=== PATIENT | male | born 1950 | race Caucasian/White ===

== ENCOUNTER 2024-04-09 15:21 | Observation (INO) ==
[2024-04-09] MEDS ORDERED: Heparin IV Adult Wt-Based Standard w/ INITIAL Bolus Protocol IV SCH (16:53)
[2024-04-09 16:59] LABS: Basophils # (auto) 0.05 K/uL (0.00-0.20); Basophils % (auto) 0.5 %; Eosinophils # (auto) 0.22 K/uL (0.00-0.50); Eosinophils % (auto) 2.2 %; Hematocrit (blood only) 46.3 % (42.0-52.0); Hemoglobin 15.7 g/dl (14.0-18.0); Immature Granulocytes # (auto) 0.04 K/uL (0.01-0.20); Immature Granulocytes % (auto) 0.4 %; Lymphocytes # (auto) 1.81 K/uL (1.20-3.40); Lymphocytes % (auto) 18.3 %; Mean Corpuscular Hemoglobin 30.4 pg (25.0-34.0); Mean Corpuscular Hgb Conc 33.9 g/dL (32.0-36.0); Mean Corpuscular Volume 89.7 fL (80.0-100.0); Mean Platelet Volume 10.2 fL (9.4-12.4); Monocytes # (auto) 0.77 K/uL (0.11-0.59); Monocytes % (auto) 7.8 %; Neutrophils # (auto) 6.98 K/uL (1.40-6.50); Neutrophils % (auto) 70.8 %; Platelet Count 250 K/uL (130-400); RDW Coefficient of Variation 13.8 % (11.5-14.5); RDW Standard Deviation 45.8 fL (36.4-46.3); Red Blood Count 5.16 M/uL (4.70-6.10); White Blood Count 9.87 K/ul (4.8-10.8)
[2024-04-09 17:17] LABS: BUN Creatinine Ratio 15.7 (10-20); Calcium 9.4 mg/dl (8.6-10.3); Creatinine Clr Calc Pharmacy 74.1 ml/min; Est GFR (African American) 101.2 ml/min; Est GFR (Non-African American) 87.3 ml/min; Potassium 3.5 mmol/L (3.5-5.1)
[2024-04-09 17:28] LABS: Partial Thromboplastin Ratio 1.1; Partial Thromboplastin Time 29 Seconds (21-31); Prothrombin Time 10.9 Seconds (9.0-12.0)
--- NOTE | 2024-04-09 17:45 | History & Physical Report ---
Date of Service April 09, 2024 Assessment & Plan (1) Acute DVT (deep venous thrombosis): Plan Acute DVT LLE: Patient was evaluated for LLE swelling, got lower extremity venous Doppler done as an outpatient. See above HPI. ED physician communicated with vascular sx, patient started on heparin drip. Continue heparin drip, will get troponin, echo once CTA chest shows PE as well, CTA chest. Patient advised to follow-up with PCP office for age-appropriate cancer screening. Patient advised to follow-up with hematology upon discharge. Hypertension: Continue lisinopril. DVT prophylaxis: Patient will be on heparin drip Full code History of Present Illness Chief Complaint: LLE DVT Primary Care Provider: NO PCP 74-year-old male with PMH of HTN, Prediabetes (A1c of 6.0 on 04/08/2024), prostate cancer status post radical prostatectomy about 20 years ago (02/20/24 PSA <0.02), cataract both eyes, current use of tobacco [ 6-7 cigarettes a day] was referred to the ED by his PCP office after noting acute DVT in his left lower extremity. His outpatient lower extremity venous ultrasound Doppler as below: Left external iliac vein has continuous flow, and echogenic. Left common femoral vein has continuous flow, is partly compressible and echogenic. Left femoral vein has continuous flow, is non-compressible and echogenic. Left popliteal vein has no flow, is non-compressible and echogenic. Left posterior tibial vein demonstrates evidence of thrombosis. Left peroneal vein demonstrates evidence of thrombosis. The contralateral common femoral vein is patent and free of internal echoes. Patient reports progressive left lower extremity swelling since last couple of weeks, associated with pain, patient thought it could be gout and took naproxen without much relief, even propped his lower extremity up with no reduction in swelling. Yesterday he went to PCP office where Doppler lower extremity was done, came back positive for DVT today and he was referred to the ED. Patient denies any long travel, he reports that he is pretty much mobile and active and does not have any sedentary lifestyle in the last couple of months. Patient reports his last colonoscopy could be more than 13 years ago but reports that his Cologuard done approximately 6 months ago came back negative. Could not locate Cologuard test in the [facility] EMR. Patient denies fever/sore throat/chest pain/cough/palpitation/heada kaur/dizziness/nausea/vomiting/acute changes in his bowel or bladder or appetite habits/belly pain/shortness of breath. Patient reports smoking 6 to 7 cigarettes a day, drinks beer on weekends, uses m arijuana daily. Medications reviewed with the patient at bedside. Plan of care discussed with the patient in detail, he voiced understanding. Full code Allergies Allergy/AdvReac Type Severity Reaction Status Date / Time venom-wasp protein Allergy Unknown Verified 04/09/24 17:28 Home Medications Medication Instructions Recorded Confirmed Type lisinopril 40 mg tablet 40 mg PO UD 04/09/24 04/09/24 History Past Med/Surg History Problem List (Updated 04/09/24 @ 17:51 by Alma Sanon MD) Acute DVT (deep venous thrombosis) Social History Smoking Status: Current every day smoker Preferred Language: Georgian Feels Safe at Home: Yes Review of Systems Review of Systems: Negative otherwise mentioned in HPI. Physical Exam Physical Exam: GENERAL: Alert and oriented x3. NAD, on RA. HEENT: No pallor, no icterus. Pupils equal, round and reactive to light. Oral mucosa moist. NECK: No JVD, no neck masses. HEART: S1 and S2 heard. Regular rate and rhythm. No murmur, no gallop. RESPIRATORY SYSTEM: Normal AP diameter. No accessory muscle use. No wheezing, no crackles. ABDOMEN: Soft, bowel sounds present, nontender, no distention. CENTRAL NERVOUS SYSTEM: No facial droop. Speech is clear. Obeys simple commands. Moves extremities. EXTREMITIES: No edema x rle, no erythema seen. LLE: 2+ edema, tender, no erythema. Results & Data Results & Data Vital Signs (Past 12 Hours) Vital Signs Temp Pulse Resp BP Pulse Ox O2 Del Method 04/09/24 16:53 76 04/09/24 15:57 36.4 C L 78 19 160/92 H 99 Room Air
[2024-04-09] MEDS ORDERED: MAGNESIUM HYDROXIDE SUSP 30 ML UDC PO PRN (17:49)
[2024-04-09] MEDS ORDERED: POLYETHYLENE (MIRALAX) 17 GM PACK PO PRN (17:49)
[2024-04-09] MEDS ORDERED: ALUMINUM/MAGNESIUM SUSP 30 ML UDC PO PRN (17:49)
[2024-04-09] MEDS ORDERED: ACETAMINOPHEN 325 MG TAB PO PRN (17:49)
[2024-04-09] MEDS: HEPARIN SODIUM/DEXTROSE 25,000 UNITS/500 ML BAG IV SCH (17:53)
[2024-04-09] MEDS: HEPARIN SOD (PORCINE) 1000 UNIT/ML IV ONE ×2 (17:54→17:55)
[2024-04-09] MEDS: Heparin IV Adult Wt-Based Standard w/ INITIAL Bolus Protocol IV STA (17:55)
[2024-04-09 18:17] LABS: Troponin I High Sensitivity 5.5 pg/ml (0-20)
[2024-04-09] MEDS: OPTIRAY 320 125ml IV ONE (18:45)
--- NOTE | 2024-04-09 19:20 | CT Scan Report ---
Exam(s): CTA CHEST IV Amt: 114 cc opti 320 EXAM: CT Angiography Chest With Intravenous Contrast CLINICAL HISTORY: Reason for exam: PE. TECHNIQUE: Axial computed tomographic angiography images of the chest with intravenous contrast. CTDI is 17.25 mGy and DLP is 600.23 mGy-cm. Automated exposure control was utilized for the study. A dose lowering technique was utilized adhering to the principles of ALARA. MIP reconstructed images were created and reviewed. COMPARISON: No relevant prior studies available. FINDINGS: Pulmonary arteries: Small amount of subacute to chronic appearing PE within the right lower lobar segmental pulmonary arteries. 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 No dissection. Lungs: No pulmonary infarct. No consolidation. Pleural based granuloma within the periphery of the right upper lobe. Minimal atelectasis within the right middle and right lower lobes. Pleural space: Unremarkable. Heart: RV to LV ratio less than 1. No evidence of right heart strain. Bones/joints: No acute fracture. Soft tissues: Unremarkable. Lymph nodes: Unremarkable. IMPRESSION: 1. Small amount of subacute to chronic appearing PE within the right lower lobar segmental pulmonary arteries. 2. RV to LV ratio less than 1. No evidence of right heart strain. 3. 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 No dissection. Communications: Verify Receipt Electronically signed by: Amado Hoyt MD 04/09/24 19:19 PM
--- NOTE | 2024-04-09 22:41 | Emergency Department Note ---
History of Present Illness General Chief Complaint: Abnormal Labs/Diagnostic Testing Stated Complaint: LAB Time Seen by Provider: 04/09/24 16:01 History of Present Illness Provider Complaint: + abnormal lab Returns today for: + called because of abnormal lab/test Description of abnormal result: Ultrasound showing DVT Associated symptoms: no fever, no chills, no chest pain, no shortness of breath, no rash or no abdominal pain Home Medications Medication Instructions Recorded Confirmed Type lisinopril 40 mg tablet 40 mg PO UD 04/09/24 04/09/24 History Allergies Allergy/AdvReac Type Severity Reaction Status Date / Time venom-wasp protein Allergy Unknown Verified 04/09/24 17:28 Past Med/Surg History Problem List (Updated 04/09/24 @ 22:41 by Clayton Hill MD) Acute DVT (deep venous thrombosis) (Acute) Medical History No pertinent family history HTN (hypertension) Surgical History No pertinent past surgical history Social History Smoking Status: Current every day smoker Tobacco Type: Cigarettes Cigarettes Per Day: 6; Do You Dip or Chew Tobacco: No; Hx Alcohol Use: Yes Alcohol type: beer Hx Substance Use: Yes Last Used Substance: Days (ago) Preferred Language: [employer] [employer] Required: No Beliefs That Will Affect Care: None Current Living Situation: Significant Other Other Information That Helps Us Care for You: No Feels Safe at Home: Yes Safety Concerns: Feels Safe At This Time Assistive Devices: Denture - Upper Physical Exam 2 Vital Signs: Vital Signs - 24 hr 04/09/24 15:57 04/09/24 16:19 04/09/24 16:53 Temperature 36.4 C L Temperature Source Temporal Artery Sc an Pulse Rate 78 74 76 Pulse Rate [Apical ] Pulse Rhythm Regular Pulse Rhythm [Apic al] Pulse Strength Normal Pulse Strength [Ap ical] Respiratory Rate 19 17 Respiratory Effort / Characteristics Non-Labored Respiratory Depth Normal Respiratory Patter n Regular Blood Pressure 160/92 H Blood Pressure [Le ft Arm] Blood Pressure Jordyn n 114 Blood Pressure Jordyn n [Left Arm] Blood Pressure Pos ition Sitting Blood Pressure Pos ition [Left Arm] Pulse Oximetry 99 98 Oxygen Delivery Me thod Room Air Room Air Sepsis Recent Feve r Within 48 Hours No Sepsis New/Unexpla ined Change in Men hermila Status No Sepsis Action Take n by Nursing No Action Required 04/09/24 17:49 Temperature Temperature Source Pulse Rate Pulse Rate [Apical ] 81 Pulse Rhythm Pulse Rhythm [Apic al] Regular Pulse Strength Pulse Strength [Ap ical] Normal Respiratory Rate 14 Respiratory Effort / Characteristics Non-Labored Respiratory Depth Normal Respiratory Patter n Regular Blood Pressure Blood Pressure [Le ft Arm] 155/88 H Blood Pressure Jordyn n Blood Pressure Jordyn n [Left Arm] 110 Blood Pressure Pos ition Blood Pressure Pos ition [Left Arm] Sitting Pulse Oximetry 98 Oxygen Delivery Me thod Room Air Sepsis Recent Feve r Within 48 Hours Sepsis New/Unexpla ined Change in Men hermila Status Sepsis Action Take n by Nursing Physical Exam: Physical Exam CV: Normal rate, regular rhythm, normal heart sounds and intact distal pulses. Palpable radial pulses bue. PULM/CHEST: Effort normal and breath sounds normal. No respiratory distress. No stridor. He has no wheezes. He has no rales. - Chest Wall: He exhibits no tenderness. MUSC/SKEL: Swelling of the left lower extremity greater than right lower extremity. Compartments soft bilaterally. Palpable DP and PT pulses bilaterally. NEURO: He is alert and oriented to person, place, and time. He has normal strength. No cranial nerve deficit or sensory deficit. Coordination and gait normal. GCS eye subscore is 4. GCS verbal subscore is 5. GCS motor subscore is 6. Cerebellar tests wnl. Course Course 1601: The patient was evaluated in room C6. A complete history and physical exam was performed Cardiac monitoring: An order was placed for continuous cardiac monitoring. The monitor shows a rate of 70 with sinus rhythm interpreted by me 1639: Niurka case assembler was able to obtain external medical records of the the ultrasound report from the [employer] EMR. The patient's ultrasound done today showed an extensive DVT with partly compressible left common femoral vein noncompressible left femoral vein left popliteal vein is noncompressible has no flow left posterior tibial vein demonstrates evidence of thrombosis left peroneal vein demonstrates evidence of thrombosis. Given the extensive quality of this DVT is thought that the patient should be admitted for anticoagulation as opposed to be started on DOAC. Discussed the case with [facility] hospitalist team Dr. Sanon who asked that we speak with Dr. Urena from vascular surgery to see if he prefers IV blood thinners or DOAC treatment. 8: Spoke with Dr. Urena from vascular surgery. He agrees that the patient should be treated with IV heparin. Dr. Sanon's team was notified and the patient will be started on heparin. 8: Vital signs stable. Patient reporting chest pain or difficulty breathing. Inpatient team ordered a CTA of his chest which showed small amount of subacute to chronic appearing PE in the right lower lobe segmental pulmonary arteries with no evidence of heart strain. [facility] hospitalist Dr. Rangel who took over for Dr. Sanon was made aware of these results. Patient is already on heparin. Administered Medications Heparin Sodium/Dextrose (Heparin Sodium/Dextrose) 25,000 units in 500 mls @ 24 mls/hr IV .[id number] [facility]; Protocol Stop: 05/09/24 17:14 Last Admin: 04/09/24 17:53 Dose: 1,200 units/hr, 24 mls/hr Documented By: JASWINDER Co-signed By: [facility] Discontinued Medications Heparin Sodium (Porcine) (Heparin Sod (Porcine) 1000 Unit/Ml) 1 units IV NOW ONE Stop: 04/09/24 17:06 Last Admin: 04/09/24 17:55 Dose: Not Given Documented By: JASWINDER Heparin Sodium (Porcine) (Heparin Sod (Porcine) 1000 Unit/Ml) 5,000 units IV NOW ONE Stop: 04/09/24 17:31 Last Admin: 04/09/24 17:54 Dose: 5,000 units Documented By: JASWINDER Co-signed By: [facility] Heparin Sodium/Dextrose (Heparin Iv Adult Wt-Based Standard W/ Initial Bolus Protocol) 1 each IV NOW STA; Protocol Stop: 04/09/24 16:51 Last Admin: 04/09/24 17:55 Dose: Not Given Documented By: JASWINDER Ioversol (Optiray 320 125ml) 114 ml IV ONCE ONE Stop: 04/09/24 18:45 Last Admin: 04/09/24 18:45 Dose: 114 ml Documented By: RAFAL Medical Decision Making Medical Records Attestation: I reviewed the patient's medical records. external medical records of the the ultrasound report from the [employer] EMR. The patient's ultrasound done today showed an extensive DVT with partly compressible left common femoral vein noncompressible left femoral vein left popliteal vein is noncompressible has no flow left posterior tibial vein demonstrates evidence of thrombosis left peroneal vein demonstrates evidence of thrombosis. Laboratory Data Attestation: I reviewed the patient's lab results. 04/09/24 16:34 04/09/24 16:34 Lab Results 04/09/24 Range/Units 16:34 WBC 9.87 (4.8-10.8) K/ul RBC 5.16 (4.70-6.10) M/uL Hgb 15.7 (14.0-18.0) g/dl Hct 46.3 (42.0-52.0) % MCV 89.7 (80.0-100.0) fL MCH 30.4 (25.0-34.0) pg MCHC 33.9 (32.0-36.0) g/dL RDW Std Deviation 45.8 (36.4-46.3) fL RDW Coeff of Cely 13.8 (11.5-14.5) % Plt Count 250 (130-400) K/uL MPV 10.2 (9.4-12.4) fL Immature Gran % (Auto) 0.4 % Neut % (Auto) 70.8 % Lymph % (Auto) 18.3 % Fannin % (Auto) 7.8 % Eos % (Auto) 2.2 % Baso % (Auto) 0.5 % Neut # (Auto) 6.98 H (1.40-6.50) K/uL Lymph # (Auto) 1.81 (1.20-3.40) K/uL Fannin # (Auto) 0.77 H (0.11-0.59) K/uL Eos # (Auto) 0.22 (0.00-0.50) K/uL Baso # (Auto) 0.05 (0.00-0.20) K/uL Immature Gran # (Auto) 0.04 (0.01-0.20) K/uL PT 10.9 (9.0-12.0) Seconds INR 1.0 (0.9-1.1) APTT 29 (21-31) Seconds PTT Ratio 1.1 Sodium 138 (136-145) mmol/L Potassium 3.5 (3.5-5.1) mmol/L Chloride 103 (98-107) mmol/L Carbon Dioxide 27 (21-32) mmol/L Anion Gap 8 (3-11) BUN 13 (6-23) mg/dl Creatinine 0.83 (0.6-1.4) mg/dl Est Cr Clr Drug Dosing 74.1 ml/min Est GFR ( Amer) 101.2 ml/min Est GFR (Non-Af Amer) 87.3 ml/min BUN/Creatinine Ratio 15.7 (10-20) Glucose 100 H (70-99(Fasting)) mg/dl Calcium 9.4 (8.6-10.3) mg/dl Troponin I High Sens 5.5 (0-20) pg/ml [facility] Narrative 1601: The patient was evaluated in room C6. A complete history and physical exam was performed Cardiac monitoring: An order was placed for continuous cardiac monitoring. The monitor shows a rate of 70 with sinus rhythm interpreted by me 1639: Niurka case assembler was able to obtain external medical records of the the ultrasound report from the [employer] EMR. The patient's ultrasound done today showed an extensive DVT with partly compressible left common femoral vein noncompressible left femoral vein left popliteal vein is noncompressible has no flow left posterior tibial vein demonstrates evidence of thrombosis left peroneal vein demonstrates evidence of thrombosis. Given the extensive quality of this DVT is thought that the patient should be admitted for anticoagulation as opposed to be started on DOAC. Discussed the case with [facility] hospitalist team Dr. Sanon who asked that we speak with Dr. Urena from vascular surgery to see if he prefers IV blood thinners or DOAC treatment. 1648: Spoke with Dr. Urena from vascular surgery. He agrees that the patient should be treated with IV heparin. Dr. Sanon's team was notified and the patient will be started on heparin. 1928: Vital signs stable. Patient reporting chest pain or difficulty breathing. Inpatient team ordered a CTA of his chest which showed small amount of subacute to chronic appearing PE in the right lower lobe segmental pulmonary arteries with no evidence of heart strain. [facility] hospitalist Dr. Rangel who took over for Dr. Sanon was made aware of these results. Patient is already on heparin. Impression & Plan Acute DVT (deep venous thrombosis) Critical Care Time Critical Care Time: Yes Total Critical Care Time: 37 I have personally spent greater than 37 minutes of critical care time in the direct management of this patient. This includes bedside care, interpretation of diagnostic studies, and testing, discussion with consultants, patient, and family members, and other required patient management activities. This 37 minutes is in excess of all separately billable procedures. Discharge Plan Visit Data Chief Complaint: Abnormal Labs/Diagnostic Testing Stated Complaint: LAB ED Provider: Clayton Hill Discharge Problem: Acute DVT (deep venous thrombosis) Patient Disposition: Admitted As Inpatient Discharge Instructions Interventions: ED Discharge Assessment Last Done: 04/09/24 20:45 Discharge Problem: Acute DVT (deep venous thrombosis) Qualifiers: DVT location: lower extremity Affected thrombotic vein of extremity: u nspecified vein of extremity Laterality: unspecified laterality Qualified Code(s): I82.409 - Acute embolism and thrombosis of unspecified deep veins of unspecified lower extremity
[2024-04-10 00:32] LABS: ANTI-Xa, UFH(UnfractionatedHep 0.64 IU/ml (0.3-0.7)
[2024-04-10 06:01] LABS: ANTI-Xa, UFH(UnfractionatedHep 0.58 IU/ml (0.3-0.7)
[2024-04-10] MEDS: lisinopril 40 MG TAB PO SCH (08:01)
--- OUTSIDE RECORDS SUMMARY | 2024-04-10 09:53 | External Medical Summary | Summary of Care ---
Author Name Unknown Organization [facility] Address [address] [place] [address] Phone [phone] Care Team Providers Care Telesales Consultant Name Role Phone Unavailable Primary Care Provider Unavailabl e Reason for Visit * Reason Onset Date Comments Acute Patient c/o left leg and foot swelling that has been going on for appx 2 weeks. Swelling is hindering ability to walk. Medication Administration 04/08/2024 Flu an d/or Pneumo Inj Encounter Details Date Type Department Care Team (Late st Contact Info) Description 04/08/2024 4:00 PM EDT Office Visit General Internal Medicine [facility] [place] [address] [facility] [place] [address] Marielos Sweeney PA-C [address] [facility] [place] [address] Edema of left lower leg*; Pain of left calf; History of gout; Need for prophylactic vaccination and inoculation against influenza Allergies Active Allergy Reactions Criticality Noted Date Comments Wasp Venom Anaphylaxis High 02/20/2024 documented as of this encounter (statuses as of 04/08/2024) Medications Medication Sig Dispensed Refills Start Date End Date Status Lisinopril 40 MG Oral Tablet Take 1 Tablet by mouth in the morning. 90 Tablet 3 02/20/2024 Active documented as of this encounter (statuses as of 04/08/2024) Active Problems Problem Noted Date Diagnosed Date Combined forms of age-related cataract of both e yes 03/14/2024 documented as of this encounter (statuses as of 04/08/2024) Immunizations Name Administration Dates Next Due Pneumococcal Conjugate Vaccine, 20-valent (Prevn ar20) 09/22/2023 Seasonal Influenza, High Dos e, Trivalent, PF, IM (Fluzone HD) 04/08/2024 documented as of this encounter Social History Tobacco Use Types Packs/Day Years Used Date Smoking Tobacco: Former Cigarettes Smokeless Tobacco: Never Alcohol Use Standard Drinks/Week Comments Yes 6 (1 standard drink = 0.6 oz pur e alcohol) PHQ-2 Answer Date Recorded PHQ Adult Total Score 0 02/20/2024 Utilities Answer Date Recorded Do you have trouble paying y our heating, water, or electric bill? (Adult - for ages 18 years and over) Not on file 01/09/2024 Is your family able to pay t he heat, water, or electric bill? (Household - for ages 0-17 years) Not on file 01/09/2024 Does your family have access to good internet? (Household - for ages 0-17 years) Not on file 01/09/2024 Social Connections Answer Date Recorded How often do you feel lonely or isolated from those around you? (Adult - for ages 18 years and over) Not on file 01/09/2024 Sex and Gender Information Value Date Recorded Sex Assigned at Not on file Gender Identity Not on file Sexual Orientation Not on file Job Start Date Occupation Industry Not on file Not on file Not on file documented as of this encounter Last Filed Vital Signs Vital Sign Reading Time Taken Comments Blood Pressure 138/76 04/08/2024 4:25 PM EDT Pulse 82 04/08/2024 4:02 PM EDT Temperature 36.4 C (97.6 F) 04/08/2024 4:02 PM ED T Respiratory Rate - - Oxygen Saturation 99% 04/08/2024 4:02 PM EDT Inhaled Oxygen Concentration - - Weight 70.3 kg (155 lb) 04/08/2024 4:02 PM EDT Height - - Body Mass Index 23.74 02/20/2024 8:11 AM EDT documented in this encounter Patient Instructions * Patient Instructions* Gabriella Espinal, MED ASSIST - 04/08/2024 4:05 PM EDT ~~PATIENT INSTRUCTIONS FOR FLU SHOT~~ Possible side effects of influenza vaccine, (flu shot), are usually mild and include: 1. Soreness or redness at injection site 2. Low grade fever 3. Body aches You may use Tylenol/Acetaminophen as needed for these symptoms. LET YOUR DOCTOR KNOW IMMEDIATELY IF YOU HAVE DIFFICULTY BREATHING OR SWALLOWING, EXPERIENCE ITCHINGOF FEET OR HANDS, HAVE SWELLING OF EYES, FACE OR INSIDE OF NOSE. ~~PATIENT INSTRUCTIONS FOR FLU SHOT~~ Possible side effects of influenza vaccine, (flu shot), are usually mild and include: 1. Soreness or redness at injection site 2. Low grade fever 3. Body aches You may use Tylenol/Acetaminophen as needed for these symptoms. LET YOUR DOCTOR KNOW IMMEDIATELY IF YOU HAVE DIFFICULTY BREATHING OR SWALLOWING, EXPERIENCE ITCHINGOF FEET OR HANDS, HAVE SWELLING OF EYES, FACE OR INSIDE OF NOSE. documented in this encounter Progress Notes * Marielos Sweeney PA-C - 04/08/2024 4:08 PM EDT Images from the original note were not included. History of Present Illness He Powers is a 74 year old male that presents for Acute (Patient c/o left leg and foot swelling that has been going on for appx 2 weeks. Swelling is hindering ability to walk.) and Medication Administration (Flu and/or Pneumo Inj) Pt here today for an acute visit with a c/o edema of L lower leg and ankle for the last 2 weeks. Painful and hard to walk. Has been using Naproxen and icing the area with mild improvement. Denies chest pain or SOB. Denies recent travel or surgery. Reports he has a history of gout in the past. Review of Systems: See HPI for pertinent positives. All other review of systems is negative. Physical Exam Vitals: 04/08/24 1602 04/08/24 1625 Temp: 36.4 C (97.6 F) Pulse: 82 SpO2: 99% BP: 152/76 138/76 Physical Exam Constitutional: General: He is not in acute distress. Appearance: He is not diaphoretic. Cardiovascular: Rate and Rhythm: Normal rate and regular rhythm. Pulmonary: Effort: Pulmonary effort is normal. Breath sounds: Normal breath sounds. Musculoskeletal: Right lower leg: No edema. Left lower leg: Tenderness (with palpation of calf) present. 3+ Pitting Edema present. Skin: General: Skin is warm and dry. Neurological: General: No focal deficit present. Mental Status: He is alert. Mental status is at baseline. I have reviewed the following results: Assessment and Plan Edema of left lower leg Labs today to eval symptoms. R/o cardiac issues or gout. Stat Doppler to r/o DVT. Will call with results. - BASIC METABOLIC PANEL; Future - BNP, NT-PRO; Future - URIC ACID; Future - CBC WITH WBC DIFFERENTIAL AND ANEMIA REFLEX WORKUP; Future - VASC DUPLEX VENOUS LE UNILAT Pain of left calf Stat Doppler. - VASC DUPLEX VENOUS LE UNILAT History of gout Update uric acid. Symptoms today not typical of gout. - URIC ACID; Future Need for prophylactic vaccination and inoculation against influenza Flu vac given today. - INFLUENZA VAC., TRIVALENT, HD, PF, 65 AND ABOVE, 0.5 ML IM (FLUZONE HD) Wrap-Up Follow Up: Return if symptoms worsen or fail to improve, for Labs Today. | For: Labs Today Time: I spent a total of 30-39 minutes (exact time 32 mins) on the date of service in preparation, delivery, and documentation of the care provided to He Powers excluding any time spent in the performanceof separately billed services. * Gabriella Espinal MED ASSIST - 04/08/2024 4:04 PM EDT PRE - ADMINISTRATION DOCUMENTATION Are you experiencing any cold symptoms or fever? No Have you had Guillain-Freeport Syndrome (an illness that causes paralysis) within the last 6 weeks? No Have you had the flu shot in the past? YES Have you ever had a reaction to the flu shot? No LEONARDO Machado, 04/08/2024 4:04 PM Immunization Administration Documentation Time Out Procedure Performed: Yes Patient Identified (Ask Name/Date of ): Yes Does the patient have a fever greater than 101 degrees today? No Patient allergic to latex? No VFC Stock: No Immunization(s) verified: Yes, Immunization Name: Flu, VIS Sheet(s) given: Yes Verified Side and Site: Yes Verified Shot(s) with Parent(s)/Patient: Yes documented in this encounter Nursing Notes * Gabriella Espinal MED ASSIST - 04/08/2024 4:04 PM EDT Chief Complaint Patient presents with Acute Patient c/o left leg and foot swelling that has been going on for appx 2 weeks. Swelling is hindering ability to walk. documented in this encounter Plan of Treatment Upcoming Encounters Date Type Department Care Team (Late st Contact Info) Description 08/08/2024 10:00 AM EST Office Visit Ophthalmology, [facility] [address] [facility] [place] [address] Jason Giron DO [facility] [place] [address] 08/22/2024 9:20 AM EST Office Visit General Internal Medicine [facility] [address] [facility] [place] [address] Marielos Sweeney PA-C [address] [facility] [place] [address] Pending Results Name Type Priority Associated Diagnoses Date /Time BASIC METABOLIC PANEL Lab Routine Edema of left lower leg 04/08/2024 4:36 PM EDT BNP, NT-PRO Lab Routine Edema of left lower leg 04/08/2024 4:36 PM EDT URIC ACID Lab Routine Edema of left lower leg History of gout 04/08/2024 4:36 PM EDT CBC WITH WBC DIFFERENTIAL AND ANEMIA REFLEX WORKUP Lab Routine Edema of left lower leg 04/08/2024 4:36 PM EDT Scheduled Orders Name Type Priority Associated Diagnoses Orde r Schedule BASIC METABOLIC PANEL Lab Routine Edema of left lower leg Expected: 04/08/2024 (Approximate), Expires: 04/08/2025 BNP, NT-PRO Lab Routine Edema of left lower leg Expected: 04/08/2024 (Approximate), Expires: 04/08/2025 URIC ACID Lab Routine Edema of left lower leg History of gout Expected: 04/08/2024 (Approximate), Expires: 04/08/2025 CBC WITH WBC DIFFERENTIAL AND ANEMIA REFLEX WORKUP Lab Routine Edema of left lower leg Expected: 04/08/2024 (Approximate), Expires: 04/08/2025 VASC DUPLEX VENOUS LE UNILAT Medical Imaging STAT Edema of left lower leg Pain of left calf Ordered: 04/08/2024 Scheduled Procedures Name Priority Associated Diagnoses Date/Ti me EXTRACAPSULAR CATARACT REMOV AL WITH INTRAOCULAR LENS Combined forms of age-related cataract of both eyes Health Maintenance Due Date Last Done Comments DTap/Tdap Vaccines (1 - Tdap) 1970 Cologuard 1996 Colonoscopy 1996 Colorectal Cancer Screening 1996 Fecal Occult Blood Test 1996 Sigmoidoscopy 1996 Zoster Vaccines (1 of 2) 2001 COVID-19 Vaccine (2023-2 5 season) 2024 Depression Screening 02/19/2025 02/20/2024 Lipid Panel 02/19/2029 02/20/2024 Pneumococcal Vaccine: 65+ Years Completed AAA Screening Completed 03/14/2024 Influenza Vaccine (FLU shot) Completed 04/08/2024 HPV (Gardasil) Vaccine Aged Out No lo nger eligible based on patient's age to complete this topic Hepatitis B Vaccine Aged Out No longe r eligible based on patient's age to complete this topic MENINGOCOCCAL (MENACTRA/MENVEO) Aged Out No longer eligible based on patient's age to complete this topic documented as of this encounter Medical Devices Not on filedocumented as of this encounter Visit Diagnoses Diagnosis Edema of left lower leg- Primary Pain of left calf Pain in limb History of gout Personal history of other endocrine, metabolic, and immunity disorders Need for prophylactic vaccination and inoculation against influenza documented in this encounter"
--- OUTSIDE RECORDS SUMMARY | 2024-04-10 09:54 | External Medical Summary ---
Author Name Unknown Address Unknown Organization [id number]:[facility] [place] [address] [facility] [address] [place] [address] Laboratory Report Ordering Provider Test Date Status SANDIP PATEL 04/08/2024 16:36:54 Final Observation Date Value Abnormality Reference (Units ) Status BUN 04/08/2024 16:36:54 13 6-20 (mg/dL) Final Creatinine 04/08/2024 16:36:54 0.8 0.6-1.2 (mg/dL) Final Glomerular filtration rate/1.73 sq M.predicted [Volume Rate/Area] in Serum, Plasma or Blood by Creatinine-based formula (CKD-EPI) 04/08/2024 16:36:54 >90 >=60 (mL/min) Final eGFR is calculated based on the CKD-EPI 2020 equation. Sodium 04/08/2024 16:36:54 139 135-146 (m mol/L) Final Potassium 04/08/2024 16:36:54 4.2 3.5-5.1 (m mol/L) Final Cl 04/08/2024 16:36:54 103 98-107 (mm ol/L) Final CO2 04/08/2024 16:36:54 25 22-32 (mmo l/L) Final Anion gap 04/08/2024 16:36:54 11 7-15 (mmol /L) Final Glucose 04/08/2024 16:36:54 102 70-120 (mg /dL) Final Calcium 04/08/2024 16:36:54 9.4 8.4-10.2 ( mg/dL) Final Performing Location [facility] [place] [address] [place] [address]
--- OUTSIDE RECORDS SUMMARY | 2024-04-10 09:54 | External Medical Summary | Summary of Care ---
Author Name Unknown Organization [facility] Address [address] [place] [address] Phone [phone] Care Team Providers Care Industrial Chemistry Teacher Name Role Phone Unavailable Primary Care Provider Unavailabl e Reason for Visit * Reason Onset Date Comments Test Results Lab 03/15/2024 Encounter Details Date Type Department Care Team (Late st Contact Info) Description 03/15/2024 Telephone General Internal Medicine [facility] [address] [place] [address] [place] [address] Marielos Sweeney PA-C [address] [facility] [place] [address] Test Results Lab Allergies Active Allergy Reactions Criticality Noted Date Comments Wasp Venom Anaphylaxis High 02/20/2024 documented as of this encounter (statuses as of 03/15/2024) Medications Medication Sig Dispensed Refills Start Date End Date Status Lisinopril 40 MG Oral Tablet Take 1 Tablet by mouth in the morning. 90 Tablet 3 02/20/2024 Active documented as of this encounter (statuses as of 03/15/2024) Active Problems Problem Noted Date Diagnosed Date Combined forms of age-related cataract of both e yes 03/14/2024 documented as of this encounter (statuses as of 03/15/2024) Immunizations Name Administration Dates Next Due Pneumococcal Conjugate Vaccine, 20-valent (Prevn ar20) 09/22/2023 documented as of this encounter Social History [...] on file documented as of this encounter Miscellaneous Notes * Telephone Encounter - Smitha Miranda OSA - 03/15/2024 1:27 PM EDT Patient has been notified of the message. Patient has no further questions. * Telephone Encounter - Margot Gordon MED ASSIST - 03/15/2024 10:53 AM EDT Attempted to call patient, there was no answer, left voicemail. When patient returns call, ok for JILLIAN to relay message, please refer to below documentation. If needed, can transfer to dedicated nurse line. * Telephone Encounter - Margot Gordon MED ASSIST - 03/15/2024 10:52 AM EDT ----- Message from Marielos Sweeney sent at 03/14/2024 4:56 PM EDT ----- Pt's AAA screening is negative, which is good. documented in this encounter Plan of Treatment Upcoming Encounters Date Type Department Care Team (Late st Contact Info) Description 08/22/2024 9:20 AM EST Office Visit General Internal Medicine [place] [facility] [address] [place] [address] Marielos Sweeney PA-C [address] [place] [address] Scheduled Procedures Name Priority Associated Diagnoses Date/Ti me EXTRACAPSULAR CATARACT REMOV AL WITH INTRAOCULAR LENS Combined forms of age-related cataract of both eyes Health Maintenance Due Date Last Done Comments DTaP,Tdap,and Td Vaccines (1 - Tdap) 1970 Cologuard 1996 Colonoscopy 1996 Colorectal Cancer Screening 1996 Fecal Occult Blood Test 1996 Sigmoidoscopy 1996 Zoster Vaccines (1 of 2) 2001 COVID-19 Vaccine (2022-2 4 season) 2023 Influenza Vaccine (FLU shot) (#1) 2024 Depression Screening 02/19/2025 02/20/2024 Lipid Panel 02/19/2029 02/20/2024 Pneumococcal Vaccine: 65+ Years Completed AAA Screening Completed 03/14/2024 HPV (Gardasil) Vaccine Aged Out No lo [...]
--- OUTSIDE RECORDS SUMMARY | 2024-04-10 09:54 | External Medical Summary | Summary of Care ---
Author Name Unknown Organization [facility] Address [address] [place] [address] Phone [phone] Care Team Providers Care Unmanned Equipment Operator Name Role Phone Unavailable Primary Care Provider Unavailabl e Reason for Visit * Reason Comments Outpatient Testing Encounter Details Date Type Department Care Team (Late st Contact Info) Description 02/20/2024 9:30 AM EDT Laboratory Laboratory [facility] [place] [address] [place] [address] [place], Lab [facility] [address] [place] [address] Primary hypertension; Need for hepatitis C screening test; History of radical prostatectomy Allergies Active Allergy Reactions Criticality Noted Date Comments Wasp Venom Anaphylaxis High 02/20/2024 documented as of this encounter (statuses as of 02/20/2024) Medications Medication Sig Dispensed Refills Start Date End Date Status Lisinopril 40 MG Oral Tablet Take 1 Tablet by mouth in the morning. 90 Tablet 3 02/20/2024 Active documented as of this encounter (statuses as of 02/20/2024) Active Problems No known active problems documented as of this encounter (statuses as of 02/20/2024) Immunizations Name Administration Dates Next Due Pneumococcal Conjugate Vaccine, 20-valent (Prevn ar20) 09/22/2023 documented as of this encounter Social History Tobacco Use Types Packs/Day Years Used Date Smoking Tobacco: Former Cigarettes Smokeless Tobacco: Never Alcohol Use Standard Drinks/Week Comments Yes 6 (1 standard drink = 0.6 oz pur e alcohol) Utilities Answer Date Recorded Do you have [...] on file documented as of this encounter Plan of Treatment Upcoming Encounters Date Type Department Care Team (Late st Contact Info) Description 02/20/2024 9:20 AM EDT [place] [facility] [place] [address] [place] [address] [address] 03/14/2024 11:15 AM EDT Imaging Radiology [facility] [address] [place] [address] 03/14/2024 1:30 PM EDT Office Visit Ophthalmology, [facility] [address] [place] [address] Jason Giron, DO [address] [facility] [place] [address] 08/22/2024 9:20 AM EST Office Visit General Internal Medicine [facility] [place] [address] [place] [address] [address] Marielos Sweeney PA-C [address] [place] [address] [address] Pending Results Name Type Priority Associated Diagnoses Date /Time COMPREHENSIVE METABOLIC PANEL Lab Routine Primary hypertension 02/20/2024 8:58 AM EDT LIPID PANEL WITH DIRECT LDL IF TG IS HIGH Lab Routine Primary hypertension 02/20/2024 8:58 AM EDT HEPATITIS C ANTIBODY SCREEN WITH PROGRESSION TO HEPATITIS C RNA QUANTITATIVE Lab Routine Need for hepatitis C screening test 02/20/2024 8:58 AM EDT PSA Lab Routine History of radical prostatectomy 02/20/2024 8:58 AM EDT HEPATITIS C ANTIBODY Lab Routine Need for hepatitis C screening test 02/20/2024 8:58 AM EDT HEPATITIS C RNA ADD ON Lab Routine Need for hepatitis C screening test 02/20/2024 8:58 AM EDT Health Maintenance Due Date Last Done Comments Lipid Panel 1951 Hepatitis C Screening 1969 DTaP,Tdap,and Td Vaccines (1 - Tdap) 1970 Cologuard 1996 Colonoscopy 1996 Colorectal Cancer Screening 1996 Fecal Occult Blood Test 1996 Sigmoidoscopy 1996 Zoster Vaccines (1 of 2) 2001 AAA Screening 2016 COVID-19 Vaccine (2022-2 4 season) 2023 Influenza Vaccine (FLU shot) (#1) 2024 Depression Screening 02/19/2025 02/20/2024 Pneumococcal Vaccine: 65+ Years Completed HPV (Gardasil) Vaccine Aged Out No lo [...] as of this encounter Visit Diagnoses Diagnosis Primary hypertension Unspecified essential hypertension Need for hepatitis C screening test Special screening examination for other specified viral diseases History of radical prostatectomy Personal history of surgery to other organs documented in this encounter
--- OUTSIDE RECORDS SUMMARY | 2024-04-10 09:54 | External Medical Summary | Summary of Care ---
Author Name Unknown Organization [facility] Address [address] [facility] [address] Phone [phone] Care Team Providers Care Automatic Glove Former Name Role Phone Unavailable Primary Care Provider Unavailabl e Reason for Visit * Reason Comments NEW PATIENT Cataracts Encounter Details Date Type Department Care Team (Late st Contact Info) Description 03/14/2024 1:30 PM EDT Office Visit Ophthalmology, [facility] [address] [facility] [place] [address] Jason Giron, DO [address] [facility] [place] [id number] Combined forms of age-related cataract of both eyes* Allergies Active Allergy Reactions Criticality Noted Date Comments Wasp Venom Anaphylaxis High 02/20/2024 documented as of this encounter (statuses as of 03/14/2024) Medications Medication Sig Dispensed Refills Start Date End Date Status Lisinopril 40 MG Oral Tablet Take 1 Tablet by mouth in the morning. 90 Tablet 3 02/20/2024 Active documented as of this encounter (statuses as of 03/14/2024) Active Problems Problem Noted Date Diagnosed Date Combined forms of age-related cataract of both e yes 03/14/2024 documented as of this encounter (statuses as of 03/14/2024) Immunizations Name Administration Dates Next Due Pneumococcal [...] on file documented as of this encounter Progress Notes * Jason Giron, DO - 03/14/2024 11:40 AM EDT 03/14/2024 He Powers is a 73 year old patient here for cataract evaluation. Referred by self Patient c/o progressively increasing difficulty with vision in right eyes at distance = near. The following activities are more difficult because of blurred vision from the cataract in the right EYE : Reading the newspaper: yes Reading medication labels: yes Watching TV: yes Driving during the day: yes Driving at night: yes Recognizing people: yes Past Ocular History, reviewed: Glasses Cataract OD Eye Medications, reviewed: Denies Hx of refractive procedure, reviewed: Denies Hx of contact lens use, reviewed: Denies Hx of eye trauma, reviewed: Denies FOHx, reviewed: Denies Review of Systems Unless noted above, all other systems negative. Nursing notes reviewed. Base Eye Exam Visual Acuity (Snellen - Linear) Right Left Dist sc 20/800 20/25 -2 Dist ph sc 20/150 -1 Tonometry (Tonopen, 11:16 AM) Right Left Pressure 10 11 Pupils Pupils Dark Light Shape React APD Right PERRL 3 3 Round Brisk None Left PERRL 3 3 Round Brisk None Visual Ball (Counting fingers) Right Left Full Full Extraocular Movement Right Left Full, Ortho Full, Ortho Neuro/Psych Oriented x3: Yes Mood/Affect: Normal Dilation Both eyes: 0.5% Proparacaine @ 11:15 AM Dilation #2 Both eyes: 1.0% Mydriacyl, 2.5% Phenylephrine @ 11:17 AM Dilation Comments Patient cautioned that effects of dilation may last 2-7 hours dependant upon individual reaction. It was discussed that driving while dilated is not recommended. Additional Tests Keratometry K1 [place] K2 [place] Right 44.00 075 44.25 165 Left 44.00 083 44.50 173 Glare Testing Off High Right Left 20/20 20/25 Slit Lamp and Fundus Exam External Exam Right Left External Normal Normal Slit Lamp Exam Right Left Lids/Lashes Normal Normal Conjunctiva/Sclera White and quiet White and quiet Cornea Clear Clear Anterior Chamber Deep and quiet Deep and quiet Iris PD 6mm Round and reactive Lens 3.5+ NSC, 3+ ASC, 3+ PSC 1+ NSC, 1+ cortical Fundus Exam Right Left Vitreous Hazy view Normal Disc Hazy view Normal Macula Hazy view Normal Vessels Hazy view Normal Periphery Hazy view Normal Refraction Manifest Refraction (Auto) Sphere Cylinder [place] Right Left +0.25 +0.25 173 B-scan 03/14/24: OD - No RT/RD or mass, no other obvious pathology A/P: Cataract OD>>>>OS Recommend CE/IOL right eye first. Risks, benefits, and alternatives were discussed with the patient. Explained the elective nature of the procedure and that no surgery is without risk. Discussed the option of continued non-surgical management and risks of worsening disease. Explained goals of surgery. No promises made re: outcome. Discussed options including glasses, surgery, observation. All pertinent risks and benefits reviewed with patient, including but not limited to: posterior capsule rupture, need for anterior vitrectomy, dropped/retained lens material, pain, inflammation, infection, abnormal IOP, retinal tear, retinal detachment, bleeding, need for more treatment/surgery, permanent vision loss. Typical postop course discussed and explained potential need for adjustment based on clinical course. The patient verbalized understanding of options, risks/benefits/alternatives of options, and that all questions/concerns were addressed. The patient verbalized a desire to proceed for CE/IOL Indication for removal = visually-significant right eye Indication for cataract removal explained to patient, as well as expected postoperative visual outcome in setting of the patient's specific overall ocular health. Dilates = Well, MPF lidocaine Guttata = None PXF=None seen Retina = B-scan normal, unable to view fundus Flomax = Denies Claustrophobia = Denies Anesthesia = Plan mac/topical Hx of refractive procedure=Denies IOL Measurements = To be performed IOL interpretation = Biometry (IOL) & topography (if indicated) will be obtained in near futureto determine the intended refractive target for this patient. These choices will be reflected in the final selection of the intraocular lens at the time of surgery. Discussed options for surgical anesthesia and potential risks/benefits/alternatives of all options. Discussed need for post-operative drops. Discussed potential need for corrective lenses post-operatively. Discussed possible need for anterior vitrectomy Discussed need for post-operative laser procedure (Nd:YAG capsulotomy). Discussed other potential causes for current decreased visual acuity. The patient was strongly encouraged to call with any questions regarding surgery before and after. +Trypan RTC IOL/navi or sooner prn. A/P explained, patient verbalized understanding. Patient understands to f/u immediately with questions, concerns, or any ophthalmic issues. Jason Giron DO 03/14/2024 I spent a total of 30-39 minutes (exact time 30 mins) on the date of service in preparation, delivery, and documentation of the care provided to He Powers excluding any time spent in the performanceof separately billed services or time spent by another provider/QHP. documented in this encounter Nursing Notes * Katy Silva TECH - 03/14/2024 11:04 AM EDT Pt presents to clinic for cataract evaluation. States he was told before he moved from [place] that he had cataracts and since he was moving he decided to wait until he was moved to establish care for the surgery. No past injury/surgery to eyes. documented in this encounter Plan of Treatment Upcoming Encounters Date Type Department Care Team (Late st Contact Info) Description 08/22/2024 9:20 AM EST Office Visit General Internal Medicine [facility] Valenzuela [address] [place] [address] Marielos Sweeney PA-C [address] [place] [address] Scheduled Orders Name Type Priority Associated Diagnoses Orde r Schedule ECHO EXAM OF EYE (2D) Procedures Routine Combined forms of age-related cataract of both eyes Ordered: 03/14/2024 Scheduled Procedures Name Priority Associated Diagnoses Date/Ti me EXTRACAPSULAR CATARACT REMOV AL WITH INTRAOCULAR LENS Combined forms of age-related cataract of both eyes Health Maintenance Due Date Last Done Comments DTaP,Tdap,and Td Vaccines (1 - Tdap) 1970 Cologuard 1996 Colonoscopy 1996 Colorectal Cancer Screening 1996 Fecal Occult Blood Test 1996 Sigmoidoscopy 1996 Zoster Vaccines (1 of 2) 2001 AAA Screening 2016 COVID-19 Vaccine (1 - 2022-2 4 season) 2023 Influenza Vaccine (FLU shot) (#1) 2024 Depression Screening 02/19/2025 02/20/2024 Lipid Panel 02/19/2029 02/20/2024 Pneumococcal Vaccine: 65+ Years Completed HPV [...] as of this encounter Visit Diagnoses Diagnosis Combined forms of age-related cataract of both eyes- Primary Other and combined forms of senile cataract documented in this encounter
--- OUTSIDE RECORDS SUMMARY | 2024-04-10 09:54 | External Medical Summary | Summary of Care ---
Author Name Unknown Organization [facility] Address [address] [place] [address] Phone [phone] Care Team Providers Care Flattening Machine Operator Name Role Phone Unavailable Primary Care Provider Unavailabl e Reason for Visit * Reason Onset Date Comments Test Results 02/21/2024 Encounter Details Date Type Department Care Team (Late st Contact Info) Description 02/21/2024 Telephone General Internal Medicine [facility] [place] [address] [place] [address] Marielos Sweeney PA-C [address] [facility] [place] [address] Test Results Allergies Active Allergy Reactions Criticality Noted Date Comments Wasp Venom Anaphylaxis High 02/20/2024 documented as of this encounter (statuses as of 02/21/2024) Medications Medication Sig Dispensed Refills Start Date End Date Status Lisinopril 40 MG Oral Tablet Take 1 Tablet by mouth in the morning. 90 Tablet 3 02/20/2024 Active documented as of this encounter (statuses as of 02/21/2024) Active Problems No known active problems documented as of this encounter (statuses as of 02/21/2024) Immunizations Name Administration Dates Next Due Pneumococcal [...] encounter Miscellaneous Notes * Telephone Encounter - Carolina Pierce LPN - 02/21/2024 8:58 AM EDT Patient called. Informed of message. Verbalized understanding. Will comply. * Telephone Encounter - Carolina Pierce LPN - 02/21/2024 8:52 AM EDT ----- Message from Marielos Sweeney sent at 02/20/2024 3:32 PM EDT ----- Noted pt's labs showing glucose of 122. This is a bit higher than we would expect for a fasting glucose. Would like to check a HgbA1c on this patient to check for DM. Can do this nonfasting at his convenience. His PSA remains undetectable, which is good. Hep C ab testing negative, which is normal. His chol overall doesn't look too bad, however with his age and cardiovascular risk we would like tosee his LDL (bad) chol less than 100, and his currently is 118. Would recommend diet low in saturated fats and regular exercise. Will plan to recheck fasting LDL again prior to his next f/up in 6 months. Can complete BMP and direct LDL a few days prior to his next appt. If LDL remains above 100, will need to discuss a chol med at that time. documented in this encounter Plan of Treatment Upcoming Encounters Date Type Department Care Team (Late st Contact Info) Description 03/14/2024 11:15 AM EDT Imaging Radiology [facility] [address] [facility] [place] [address] 03/14/2024 1:30 PM EDT Office Visit Ophthalmology, [facility] [address] [facility] [place] [address] Jason Giron, DO [address] [facility] [place] [address] 08/22/2024 9:20 AM EST Office Visit General Internal Medicine Radha Navarrete [place] [address] [facility] [place] [address] Marielos Sweeney PA-C [address] [facility] [place] [address] Health Maintenance Due Date Last Done Comments DTaP,Tdap,and Td Vaccines (1 - Tdap) 1970 Cologuard 1996 Colonoscopy 1996 Colorectal Cancer Screening 1996 Fecal Occult Blood Test 1996 Sigmoidoscopy 1996 Zoster Vaccines (1 of 2) 2001 AAA Screening 2016 COVID-19 Vaccine ( - 2022-2 4 season) 2023 Influenza Vaccine (FLU shot) (#1) 2024 Depression Screening 02/19/2025 02/20/2024 Lipid Panel 02/19/2029 02/20/2024 Pneumococcal Vaccine: 65+ Years Completed 09/22/2023 Hepatitis C Screening Completed 02/20/2024 , 02/20/2024, 02/20/2024 HPV (Gardasil) Vaccine Aged Out No lo nger eligible based on patient's age to complete this topic Hepatitis B Vaccine Aged Out No longe r eligible based on patient's age to complete this topic MENINGOCOCCAL (MENACTRA/MENVEO) Aged Out No longer eligible b ased on patient's age to complete this topic documented as of this encounter Medical Devices Not on filedocumented as of this encounter
--- OUTSIDE RECORDS SUMMARY | 2024-04-10 09:54 | External Medical Summary ---
Author Name Unknown Address Unknown Organization [id number]:[facility] [place] - [address] [facility] [address] Laboratory Report Ordering Provider Test Date Status SANDIP PATEL 04/08/2024 16:36:54 Final Observation Date Value Abnormality Reference (Units ) Status HbA1C 04/08/2024 16:36:54 6.0 Above high normal 4. 0-5.6 (%) Final The use of HbA1c to monitor glycemic status is based on normal hemoglobin and HbA composition. This test should not be used in patients with abnormal hemoglobin that affects the half life of the red blood cell or the in vivo glycation rates. Glucose, estimated average 04/08/2024 16:36:54 126 Above high normal <126 (mg/dL) Edwardo rodriguez Performing Location [facility] [place] - [address] [facility] [address]
--- OUTSIDE RECORDS SUMMARY | 2024-04-10 09:54 | External Medical Summary | Summary of Care ---
Author Name Unknown Organization [facility] Address [address] [place] [address] Phone [phone] Care Team Providers Care Stain Applicator Name Role Phone Unavailable Primary Care Provider Unavailabl e Reason for Referral * Ancillary Services (Within 30 days (routine)) - Pending Review Specialty Diagnoses / Procedures Referred By Wing raza Referred To Contact Gastroenterology Diagnoses Special screening for malignant neoplasms, colon Jorge Sweeney PA-C [address] [place] [address] Referral ID Status Reason Start Date Expiration Date Visits Requested Visits Authorized [id number] Pending Review Ancillary Services Required 02/20/2024 999 999 Question Answer Referral Priority Within 30 days (routine) Where should this appointment be scheduled? [facility] Comments ALERT: Do not order for pediatric patients (18 years or younger). Cancel off screen and order PEDS GASTROENTEROLOGY CONSULT (Type: 1 visit only-Evaluate and Treat) The following Pt. Instructions are available: - Gastro Colonoscopy Prep Instructions [81593] - Gastro Colonoscopy Prep Instructions (Swedish Version) [82077] Go to the Pt. Instructions section within the Visit Navigator to access. Colonoscopy ASGE Guidelines: Average risk screening (begin at age 50, 10 year intervals) ADDITIONAL INFORMATION 1. Is the patient on Coumadin? No 2. Is the patient on Pradaxa? No * (Within 10 days (routine)) - Pending Review Specialty Diagnoses / Procedures Referred By Wing raza Referred To Contact Radiology Diagnoses Tobacco use disorder Procedures US AAA SCREEN, RADIOLOGY Jorge Sweeney PA-C [address] [place] [address] Referral ID Status Reason Start Date Expiration Date V isits Requested Visits Authorized [id number] Pending Review 02/20/2024 999 999 Reason for Visit * Reason Comments NEW PATIENT Encounter Details Date Type Department Care Team (Late st Contact Info) Description 02/20/2024 8:40 AM EDT Office Visit General Internal Medicine [facility] [place] [address] [place] [address] Jorge Sweeney PA-C [address] [facility] [place] [address] Encounter to establish care*; Primary hypertension; Need for hepatitis C screening test; Tobacco use disorder; Special screening for malignant neoplasms, colon; History of radical prostatectomy; Left elbow pain; Bunion of great toe of right foot; Elevated fasting glucose; Dyslipidemia, goal LDL below 100 Allergies Active Allergy Reactions Criticality Noted Date Comments Wasp Venom Anaphylaxis High 02/20/2024 documented as of this encounter (statuses as of 02/20/2024) Medications Medication Sig Dispensed Refills Start Date End Date Status Lisinopril 40 MG Oral Tablet Take 1 Tablet by mouth in the morning. 90 Tablet 3 02/20/2024 Active Lisinopril 40 MG Oral Tablet Take 1 Tablet by mouth in the morning. 02/20/2024 Discontinued( Refill) documented as of this encounter (statuses as [...] Sign Reading Time Taken Comments Blood Pressure 104/70 02/20/2024 8:11 AM EDT Pulse 64 02/20/2024 8:11 AM EDT Temperature 36.3 C (97.4 F) 02/20/2024 8:11 AM ED T Respiratory Rate 16 02/20/2024 8:11 AM EDT Oxygen Saturation 98% 02/20/2024 8:11 AM EDT Inhaled Oxygen Concentration - - Weight 68.2 kg (150 lb 6.4 oz) 02/20/2024 8:11 A M EDT Height 172.1 cm (5' 7.75") 02/20/2024 8:11 AM ED T Body Mass Index 23.04 02/20/2024 8:11 AM EDT documented in this encounter Progress Notes * Jorge Sweeney PA-C - 02/20/2024 8:20 AM EDT Images from the original note were not included. History of Present Illness He Powers is a 73 year old male that presents for NEW PATIENT Pt here today as a new patient to establish care. Recently moved here from [place]. He lives with his girlfriend. 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 Pt reports hx of prostate cancer requiring radical prostatectomy approx 20 years ago. He smokes approx 2 cigs per day and drinks 1 beer per day. Will occ have wine as well. Pt c/o a 2 week hx of L elbow pain. Denies any trauma or injury. He is right hand dominant. Also c/o pain in the R foot. Review of Systems: See HPI for pertinent positives. All other review of systems is negative. Physical Exam Vitals: 02/20/24 0811 Temp: 36.3 C (97.4 F) Pulse: 64 Resp: 16 SpO2: 98% BP: 104/70 BMI: 23.03 Physical Exam Constitutional: General: He is not in acute distress. Appearance: He is not diaphoretic. HENT: Right Ear: Tympanic membrane, ear canal and external ear normal. Left Ear: Tympanic membrane, ear canal and external ear normal. Mouth/Throat: Mouth: Mucous membranes are moist. Pharynx: Oropharynx is clear. Cardiovascular: Rate and Rhythm: Normal rate and regular rhythm. Pulmonary: Effort: Pulmonary effort is normal. Breath sounds: Normal breath sounds. Abdominal: General: Bowel sounds are normal. Palpations: Abdomen is soft. Musculoskeletal: Left elbow: Decreased range of motion (minimal decrease in flexion). Tenderness present in olecranon process. Cervical back: Normal range of motion and neck supple. Right foot: Bunion present. Skin: General: Skin is warm and dry. Neurological: General: No focal deficit present. Mental Status: He is alert. Mental status is at baseline. I have reviewed the following results: Assessment and Plan Encounter to establish care Pt declines vaccines today. Will provide immunization records. Primary hypertension Well controlled. Continue lisinopril. Update labs. - COMPREHENSIVE METABOLIC PANEL; Future - LIPID PANEL WITH DIRECT LDL IF TG IS HIGH; Future Need for hepatitis C screening test Agreeable to one time Hep C screening. - HEPATITIS C ANTIBODY SCREEN WITH PROGRESSION TO HEPATITIS C RNA QUANTITATIVE; Future Tobacco use disorder Agreeable to AAA screening. Smoking cessation encouraged. - US AAA SCREEN, RADIOLOGY; Future Special screening for malignant neoplasms, colon Screening colonoscopy ordered. - COLONOSCOPY, GI REFERRAL OP History of radical prostatectomy Annual PSA level ordered. - PSA; Future Left elbow pain X-ray of elbow to eval for arthritis and r/o chip fracture. - XR ELBOW 3 OR MORE VIEWS Bunion of great toe of right foot Pt declines referral to podiatry. Discussed wearing proper footwear. Wrap-Up Follow Up: Return in about 6 months (around 08/22/2024) for Labs Today, Return with AP. | For: Labs Today, Return with AP documented in this encounter Nursing Notes * Margot Gordon MED ASSIST - 02/20/2024 8:11 AM EDT He Powers presents as new patient to get established. Recently moved from [place]. He is taking lisinopril. His last colonoscopy was in [place] within 10 years. He is uncertain on his TDaP but declines today. He states that he is up to date on his pneumonia vaccines and will find out the dates. He declines Shingrix. Medications & HM reviewed/updated. documented in this encounter Miscellaneous Notes * Addendum Note - Jorge Sweeney PA-C - 02/20/2024 3:32 PM EDT Addended by: JORGE SWEENEY on: 02/20/2024 03:32 PM Modules accepted: Orders documented in this encounter Plan of Treatment Upcoming Encounters Date Type Department Care Team (Late st Contact Info) Description 03/14/2024 11:15 AM EDT Imaging Radiology [facility] [address] [facility] [place] [address] 03/14/2024 1:30 PM EDT Office Visit Ophthalmology, [facility] [address] [facility] [place] [address] Jason Giron, DO [address] [facility] [place] [address] 08/22/2024 9:20 AM EST Office Visit General Internal Medicine [facility] [place] [address] [place] [address] Jorge Sweeney PA-C [address] [facility] [place] [id number] Scheduled Orders Name Type Priority Associated Diagnoses Orde r Schedule US AAA SCREEN, RADIOLOGY Medical Imaging Routine Tobacco use disorder Expected: 02/20/2024 (Approximate), Expires: 03/22/2025 XR ELBOW 3 OR MORE VIEWS Medical Imaging Routine Left elbow pain Ordered: 02/20/2024 HEMOGLOBIN A1C Lab Routine Elevated fasting glucose Expected: 02/27/2024 (Approximate), Expires: 02/19/2025 BASIC METABOLIC PANEL Lab Routine Dyslipidemia, goal LDL below 100 Expected: 08/22/2024 (Approximate), Expires: 02/19/2025 LIPID PANEL WITH DIRECT LDL IF TG IS HIGH Lab Routine Dyslipidemia, goal LDL below 100 Expected: 08/22/2024, Expires: 02/19/2025 Scheduled Referrals Name Type Priority Associated Diagnoses Orde r Schedule COLONOSCOPY, GI REFERRAL OP Referral Within 30 days (routine) Special screening for malignant neoplasms, colon Ordered: 02/20/2024 Health Maintenance Due Date Last Done Comments [...] Not on filedocumented as of this encounter Results * PSA (02/20/2024 8:58 AM EDT) PSA <0.02 <4.10 ng/mL 02/20/2024 1:39 PM EDT [facility] Blood Venous blood specimen / Unknown Venipuncture / Unknown 02/20/2024 8:58 AM EDT 02/20/2024 8:58 AM EDT Jorge Sweeney PA-C LAB BLOOD ORDERABLES LABORATORY [facility] [address] [place] [address] * LIPID PANEL WITH DIRECT LDL IF TG IS HIGH (02/20/2024 8:58 AM EDT) Triglycerides 100 <=174 mg/dL 02/20/2024 1:22 PM EDT LABORATORY [facility] Comment: Triglyceride Reference Ranges (mg/dL): <150 Acceptable 150-174 Borderline high 175-499 High >=500 Very high Cholesterol 189 <200 mg/dL 02/20/2024 1:22 PM EDT LABORATORY [facility] Comment: Total Cholesterol Reference Ranges (mg/dL): <200 Desirable 200-239 Borderline high >=240 High HDL Cholesterol 51 >39 mg/dL 1:22 PM EDT LABORATORY [facility] Comment: HDL Cholesterol Reference Ranges (mg/dL): >=60 High (Desirable) <50 Low (Undesirable) For Females <40 Low (Undesirable) For Males Non-HDL Cholesterol 138 <=159 mg/dL 02/20/2024 1:22 PM EDT LABORATORY [facility] Comment: Non-HDL Cholesterol Reference Range (mg/dL): <100 Target level for high risk ASCVD patient <130 Optimal for general population 130-159 Near optimal for general population 160-189 Borderline High 190-219 High >=220 Very High LDL Cholesterol 118 <=129 mg/dL 02/20/2024 1:22 PM EDT LABORATORY [facility] Comment: LDL Cholesterol Reference Ranges (mg/dL): <70 Target level for high risk ASCVD patient <100 Optimal for general population 100-129 Near optimal for general population 130-159 Borderline high 160-189 High >=190 Very high Blood Venous blood specimen / Unknown Venipuncture / Unknown 02/20/2024 8:58 AM EDT 02/20/2024 8:58 AM EDT Jorge Sweeney PA-C LAB BLOOD ORDERABLES LABORATORY [facility] [address] [place] [address] * (ABNORMAL) COMPREHENSIVE METABOLIC PANEL (02/20/2024 8:58 AM EDT) BUN 10 6 - 20 mg/dL 02/20/2024 9:55 AM EDT [facility] 56- Creatinine 0.9 0.6 - 1.2 mg/dL 02/20/2024 9:55 AM EDT [facility] 56- Estimated Glomerular Filtration Rate >90 >=60 mL/min 02/20/2024 9:55 AM EDT [facility] 56 Comment:eGFR is calculated b ased on the CKD-EPI 2020 equation. Sodium 141 135 - 146 mmol/L 02/20/2024 9:55 AM T [facility] 56- Potassium 4.7 3.5 - 5.1 mmol/L 02/20/2024 9:55 AM EDT [facility] 56- Chloride 102 98 - 107 mmol/L 02/20/2024 9:55 AM EDT [facility] 56- CO2 27 22 - 32 mmol/L 02/20/2024 9:55 AM EDT [facility] 56 Anion Gap 12 7 - 15 mmol/L 02/20/2024 9:55 AM EDT [facility] 56- Glucose 122(H) 70 - 120 mg/dL 02/20/2024 9:55 AM EDT [facility] 56- Albumin 4.2 3.8 - 5.0 g/dL 02/20/2024 9:55 AM EDT [facility] 56- AST 15 10 - 50 U/L 02/20/2024 9:55 AM EDT [facility] 56- Alkaline Phosphatase 96 35 - 130 U/L 02/20/2024 9:55 AM EDT [facility] 56- Bilirubin, Total 0.5 <=1.2 mg/dL 02/20/2024 9:55 AM EDT [facility] 56- Calcium 9.6 8.4 - 10.2 mg/dL 02/20/2024 9:55 AM EDT [facility] Protein 7.3 6.0 - 8.3 g/dL 02/20/2024 9:55 AM EDT [facility] ALT 14 10 - 50 U/L 02/20/2024 9:55 AM EDT [facility] Blood Venous blood specimen / Unknown Venipuncture / Unknown 02/20/2024 8:58 AM EDT 02/20/2024 8:58 AM EDT Jorge Sweeney PA-C LAB BLOOD ORDERABLES [facility] [address] [place] [address] documented in this encounter Visit Diagnoses Diagnosis Encounter to establish care- Primary Other reasons for seeking consultation Primary hypertension Unspecified essential hypertension Need for hepatitis C screening test Special screening examination for other specified viral diseases Tobacco use disorder Special screening for malignant neoplasms, colon History of radical prostatectomy Personal history of surgery to other organs Left elbow pain Pain in joint, upper arm Bunion of great toe of right foot Bunion Elevated fasting glucose Impaired fasting glucose Dyslipidemia, goal LDL below 100 Other and unspecified hyperlipidemia documented in this encounter
--- OUTSIDE RECORDS SUMMARY | 2024-04-10 09:54 | External Medical Summary ---
Author Name Unknown Address Unknown Organization [id number]:LABORATORY [facility] [place] - [address] [facility] [place] [address] Laboratory Report Ordering Provider Test Date Status SANDIP PATEL 02/20/2024 08:58:46 Final Observation Date Value Abnormality Reference (Units ) Status Triglyceride 02/20/2024 08:58:46 100 <=174 ( mg/dL) Final Triglyceride Reference Range s (mg/dL):
<150 Acceptable
150-174 Borderline high
175-499 High
>=500 Very high Cholesterol 02/20/2024 08:58:46 189 <200 (mg /dL) Final Total Cholesterol Reference Ranges (mg/dL):
<200 Desirable
200-239 Borderline high
>=240 High HDL 02/20/2024 08:58:46 51 >39 (mg/dL ) Final HDL Cholesterol Reference Ra nges (mg/dL):
>=60 High (Desirable)
<50 Low (Undesirable) For Females
<40 Low (Undesirable) For Males NON-HDL CHOLESTEROL 02/20/2024 08:58:46 138 <=159 (mg/dL) Final Non-HDL Cholesterol Referenc e Range (mg/dL):
<100 Target level for high risk ASCVD patient
<130 Optimal for general population
130-159 Near optimal for general population
160-189 Borderline High
190-219 High
>=220 Very High LDL, (calculated) 02/20/2024 08:58:46 118 <= 129 (mg/dL) Final LDL Cholesterol Reference Ra nges (mg/dL):
<70 Target level for high risk ASCVD patient
<100 Optimal for general population
100-129 Near optimal for general population
130-159 Borderline high
160-189 High
>=190 Very high Performing Location LABORATORY [facility] - [address] [facility] [address]
--- OUTSIDE RECORDS SUMMARY | 2024-04-10 09:54 | External Medical Summary ---
Author Name Unknown Address Unknown Organization K01:[facility]ORY [facility] - [address] [place] [address] Laboratory Report Ordering Provider Test Date Status SANDIP PATEL 04/08/2024 16:36:54 Final Observation Date Value Abnormality Reference (Units ) Status WBC, Total 04/08/2024 16:36:54 10.14 4.00-10.8 0 (K/uL) Final RBC 04/08/2024 16:36:54 5.06 4.50-5.25 (M/uL) Final Hemoglobin 04/08/2024 16:36:54 15.7 14.0-16.8 (g/dL) Final Anemia reflex testing trigge rs on a HGB < 12.0 for Females and HGB < 13.0 for Males in accordance with the WHO Anemia Guidelines
Anemia reflex testing triggers on a HGB < 12.0 for Females and HGB < 13.0 for Males in accordance with the WHO Anemia Guidelines HCT 04/08/2024 16:36:54 47.9 40.0-48.4 (%) Final MCV 04/08/2024 16:36:54 94.7 82.0-99.5 (fL) Final MCH 04/08/2024 16:36:54 31.0 27.0-34.0 (pg) Final MCHC 04/08/2024 16:36:54 32.8 32.0-36.0 (g/dL) Final RDW 04/08/2024 16:36:54 13.8 11.5-15.5 (%) Final Platelets 04/08/2024 16:36:54 268 140-400 (K /uL) Final MPV 04/08/2024 16:36:54 10.8 6.6-11.1 ( fL) Final Nucleated erythrocytes/100 leukocytes [Ratio] in Blood by Automated count 04/08/2024 16:36:54 0 <=0 (/100 WBCs) Fi [facility] Performing Location [facility] - [address] [facility] [address]
--- OUTSIDE RECORDS SUMMARY | 2024-04-10 09:54 | External Medical Summary ---
Author Name Unknown Address Unknown Organization K09:[facility]ATORY [facility] - [address] [place] [address] Laboratory Report Ordering Provider Test Date Status SANDIP PATEL 02/20/2024 08:58:46 Final Observation Date Value Abnormality Reference (Units ) Status BUN 02/20/2024 08:58:46 10 6-20 (mg/dL) Final Creatinine 02/20/2024 08:58:46 0.9 0.6-1.2 (mg/dL) Final Glomerular filtration rate/1.73 sq M.predicted [Volume Rate/Area] in Serum, Plasma or Blood by Creatinine-based formula (CKD-EPI) 02/20/2024 08:58:46 >90 >=60 (mL/min) Final eGFR is calculated based on the CKD-EPI 2020 equation. Sodium 02/20/2024 08:58:46 141 135-146 (m mol/L) Final Potassium 02/20/2024 08:58:46 4.7 3.5-5.1 (m mol/L) Final Cl 02/20/2024 08:58:46 102 98-107 (mm ol/L) Final CO2 02/20/2024 08:58:46 27 22-32 (mmo l/L) Final Anion gap 02/20/2024 08:58:46 12 7-15 (mmol /L) Final Glucose 02/20/2024 08:58:46 122 Above high normal 70 -120 (mg/dL) Final Albumin 02/20/2024 08:58:46 4.2 3.8-5.0 (g /dL) Final AST (Aspartate aminotransferase) 02/20/2024 08:58:46 15 10-50 (U/L) Fin al Alk Phos 02/20/2024 08:58:46 96 35-130 (U/ L) Final Bilirubin, Total 02/20/2024 08:58:46 0.5 <=1 .2 (mg/dL) Final Calcium 02/20/2024 08:58:46 9.6 8.4-10.2 ( mg/dL) Final Protein 02/20/2024 08:58:46 7.3 6.0-8.3 (g /dL) Final ALT (Alanine aminotransferase) 02/20/2024 08:58:46 14 10-50 (U/L) Edwardo rodriguez Performing Location [facility]ORY [facility] [address] [place] [address]
--- OUTSIDE RECORDS SUMMARY | 2024-04-10 09:54 | External Medical Summary ---
Author Name Unknown Address Unknown Organization K01:LABORATORY [facility] [place] [place] - [address] [facility] [place] [address] Laboratory Report Ordering Provider Test Date Status SANDIP PATEL 04/08/2024 16:36:54 Final Observation Date Value Abnormality Reference (Units ) Status SYNC LEUKOCYTES IN BLOOD BY AUTOMATED COUNT 04/08/2024 16:36:54 10.14 4.00-10.80 (K/uL) Final Segs 04/08/2024 16:36:54 66.2 40.0-75.0 (%) Final Lymphs % 04/08/2024 16:36:54 22.2 18.0-42.0 (%) Final Monos 04/08/2024 16:36:54 8.0 1.0-11.0 (%) Final Eosinophils 04/08/2024 16:36:54 2.5 0.0-6.0 (%) Final Basos 04/08/2024 16:36:54 0.7 0.0-2.0 (%) Final Immature Granulocyte, Percent 04/08/2024 16:36:54 0.4 0.0-2.0 (%) Final Absolute Segs 04/08/2024 16:36:54 6.72 1.80-7.70 (K/uL) Final Lymphs, absolute 04/08/2024 16:36:54 2.25 1.00-4.80 (K/ul) Final Monos, Abs 04/08/2024 16:36:54 0.81 0.00-1.10 (K/uL) Final Eos, Abs 04/08/2024 16:36:54 0.25 0.00-0.70 (K/uL) Final Basos, Abs 04/08/2024 16:36:54 0.07 0.00-0.20 (K/uL) Final Immature Granulocytes, Number 04/08/2024 16:36:54 0.04 0.00-0.20 (K/uL) Final Performing Location LABORATORY [facility] [place] - [address] [facility] [address]
--- OUTSIDE RECORDS SUMMARY | 2024-04-10 09:54 | External Medical Summary ---
Author Name Unknown Address Unknown Organization K01:[facility] - [address] [place] [address] Laboratory Report Ordering Provider Test Date Status SANDIP PATEL 02/20/2024 08:58:46 Final Observation Date Value Abnormality Reference (Units ) Status PSA 02/20/2024 08:58:46 <0.02 <4.10 (ng/ mL) Final Performing Location [facility] - [address] [place] [address]
--- OUTSIDE RECORDS SUMMARY | 2024-04-10 09:54 | External Medical Summary | Summary of Care ---
Author Name Unknown Organization [facility] Address [address] [place] [address] Phone [phone] Care Team Providers Care Teasel Setter Name Role Phone Unavailable Primary Care Provider Unavailabl e Reason for Visit * Reason Comments Outpatient Testing Encounter Details Date Type Department Care Team (Late st Contact Info) Description 04/08/2024 4:40 PM EDT Laboratory Laboratory [facility] [address] [place] [address] [facility] [address] [facility] [place] [address] Elevated fasting glucose; Edema of left lower leg; History of gout Allergies Active Allergy Reactions Criticality Noted Date [...] 08/08/2024 10:00 AM EST Office Visit Ophthalmology, [facility] [address] [facility] [place] [address] Jason Giron, DO [address] [facility] [place] [address] 08/22/2024 9:20 AM EST Office Visit General Internal Medicine [facility] [address] [facility] [place] [address] Marielos Sweeney PA-C 200 [facility] [place] [address] Pending Results Name Type Priority Associated Diagnoses Date /Time HEMOGLOBIN A1C Lab Routine Elevated fasting glucose 04/08/2024 4:36 PM EDT BASIC METABOLIC PANEL Lab Routine Edema of left lower leg 04/08/2024 4:36 PM EDT BNP, NT-PRO Lab Routine Edema of left lower leg 04/08/2024 4:36 PM EDT URIC ACID Lab Routine Edema of left lower leg History of gout 04/08/2024 4:36 PM EDT CBC WITH WBC DIFFERENTIAL AND ANEMIA REFLEX WORKUP Lab Routine Edema of left lower leg 04/08/2024 4:36 PM EDT ANEMIA CBC Lab Routine Edema of left lower leg 04/08/2024 4:36 PM EDT DIFFERENTIAL, AUTOMATED Lab Routine Edema of left lower leg 04/08/2024 4:36 PM EDT ANEMIA REFLEX CHEMISTRY HOLD Lab Routine Edema of left lower leg 04/08/2024 4:36 PM EDT Scheduled Procedures Name Priority Associated Diagnoses Date/Ti [...] as of this encounter Visit Diagnoses Diagnosis Elevated fasting glucose Impaired fasting glucose Edema of left lower leg History of gout Personal history of other endocrine, metabolic, and immunity disorders documented in this encounter
--- OUTSIDE RECORDS SUMMARY | 2024-04-10 09:54 | External Medical Summary ---
Author Name Unknown Address Unknown Organization K01:LAB[facility]ATORY [facility] - [address] [place] [address] Laboratory Report Ordering Provider Test Date Status SANDIP PATEL 02/20/2024 08:58:46 Final Observation Date Value Abnormality Reference (Units ) Status Hep C Ab 02/20/2024 08:58:46 Negative Negative Final Further HCV quantitative ras ting not performed per protocol. Performing Location [facility] - [address] [place] [address]
--- OUTSIDE RECORDS SUMMARY | 2024-04-10 09:54 | External Medical Summary | Summary of Care ---
Author Name Unknown Organization [facility] Address [address] [place] [address] Phone [phone] Care Team Providers Care Cut Filer Name Role Phone Unavailable Primary Care Provider Unavailabl e Reason for Referral * Ancillary Services (Within 30 days (routine)) - Pending Review Specialty Diagnoses / Procedures Referred By Wing raza Referred To Contact Gastroenterology Diagnoses Special screening for malignant neoplasms, colon Marielos Sweeney PA-C [address] [place] [address] Referral ID Status Reason Start Date Expiration Date Visits Requested Visits Authorized [id number] Pending Review Ancillary Services Required 02/20/2024 999 [id number] Question Answer Referral Priority Within 30 days (routine) Where should this appointment be scheduled? [facility] Comments ALERT: Do not order for pediatric patients (18 years or younger). Cancel off screen and order PEDS GASTROENTEROLOGY CONSULT (Type: 1 visit only-Evaluate and Treat) The following Pt. Instructions are available: - Gastro Colonoscopy Prep Instructions [32593] - Gastro Colonoscopy Prep Instructions (Czech Version) [35263] Go to the Pt. Instructions section within [...] use disorder Procedures US AAA SCREEN, RADIOLOGY Marielos Sweeney PA-C [address] [place] [address] Referral ID Status Reason Start Date Expiration Date V isits Requested Visits Authorized [id number] Pending Review 02/20/2024 999 999 Reason for Visit * Reason Comments NEW PATIENT Encounter Details Date Type Department Care Team (Late st Contact Info) Description 02/20/2024 8:40 AM EDT Office Visit General Internal Medicine [facility] [address] [facility] [place] [address] Marielos Sweeney PA-C [address] [facility] [place] [address] Encounter to establish care*; Primary hypertension; Need for hepatitis C screening test; Tobacco use disorder; Special screening for malignant neoplasms, colon; History of radical prostatectomy; Left elbow pain; Bunion of great toe of right foot Allergies Active Allergy Reactions Criticality Noted Date [...] Progress Notes * Marielos Sweeney PA-C - 02/20/2024 8:20 AM EDT Images from the original note were not included. History of Present Illness He Powers is a 73 year old male that presents for NEW PATIENT Pt here today as a new patient to establish care. Recently moved here from [place]. He lives with his girlfriend. 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 Pt reports [...] patient to get established. Recently moved from [place]. He is taking lisinopril. His last colonoscopy was in [place] within 10 years. He is uncertain on his TDaP but declines today. He states that he is up to date on his pneumonia vaccines and will find out the dates. He declines Shingrix. Medications & HM reviewed/updated. documented in this encounter Plan of Treatment Upcoming Encounters Date Type Department Care Team (Late st Contact Info) Description 02/20/2024 9:20 AM EDT Imaging Radiology [facility] [place] [address] [place] [address] [id number] 02/20/2024 9:30 AM EDT Laboratory Laboratory [facility] [place] [address] [id number] [facility] [place] [address] [place] [id number] Primary hypertension; Need for hepatitis C screening test; History of radical prostatectomy 03/14/2024 11:15 AM EDT Imaging Radiology [facility] [address] [facility] [place] [id number] 03/14/2024 1:30 PM EDT Office Visit Ophthalmology, [facility] [address] [place] [address] Jason Giron, DO [address] [address] 08/22/2024 9:20 AM EST Office Visit General Internal Medicine [facility] [place] [address] [place] [address] [address] Marielos Sweeney PA-C [address] [facility] [place] [id number] Pending Results Name Type Priority Associated Diagnoses [...] of radical prostatectomy 02/20/2024 8:58 AM EDT Scheduled Orders Name Type Priority Associated Diagnoses Orde r Schedule COMPREHENSIVE METABOLIC PANEL Lab Routine Primary hypertension Expected: 02/20/2024 (Approximate), Expires: 02/19/2025 LIPID PANEL WITH DIRECT LDL IF TG IS HIGH Lab Routine Primary hypertension Expected: 02/20/2024, Expires: 02/19/2025 HEPATITIS C ANTIBODY SCREEN WITH PROGRESSION TO HEPATITIS C RNA QUANTITATIVE Lab Routine Need for hepatitis C screening test Expected: 02/20/2024 (Approximate), Expires: 03/22/2025 AAA SCREEN, RADIOLOGY Medical Imaging Routine Tobacco use disorder Expected: 02/20/2024 (Approximate), Expires: 03/22/2025 PSA Lab Routine History of radical prostatectomy Expected: 02/20/2024 (Approximate), Expires: 02/19/2025 XR ELBOW 3 OR MORE VIEWS Medical Imaging Routine Left elbow pain Ordered: 02/20/2024 Scheduled Referrals Name Type Priority Associated Diagnoses [...] as of this encounter Visit Diagnoses Diagnosis Encounter to [...] of great toe of right foot Bunion Primary hypertension Unspecified essential hypertension Need for hepatitis C screening test Special screening examination for other specified viral diseases History of radical prostatectomy Personal history of surgery to other organs documented in this encounter
--- OUTSIDE RECORDS SUMMARY | 2024-04-10 09:54 | External Medical Summary ---
Author Name Unknown Address Unknown Organization [id number]:[facility] [place] - [address] [place] [address] Laboratory Report Ordering Provider Test Date Status SANDIP PATEL 04/08/2024 16:36:54 Final Exclude Heart Failure: <300 pg/mL
Diagnose Heart Failure:
Age <50 yr: >450 pg/mL
50-75 yr: >900 pg/mL
>75 yr: >1800 pg/mL
GFR is 30-59 mL/min: >1200 pg/mL or Age- adjusted values
GFR <30 mL/min: do not use, not reliable

Prognostic threshold: 1000 pg/mL Observation Date Value Abnormality Reference (Units ) Status BNP, Pro-hormone 04/08/2024 16:36:54 184 <30 0 (pg/mL) Final Performing Location [facility] - [address] [place] [address]
--- OUTSIDE RECORDS SUMMARY | 2024-04-10 09:54 | External Medical Summary ---
Author Name Unknown Address Unknown Organization K01:[facility] [address] [place] [address] Laboratory Report Ordering Provider Test Date Status SANDIP PATEL 04/08/2024 16:36:54 Final Observation Date Value Abnormality Reference (Units ) Status Uric Acid 04/08/2024 16:36:54 6.2 3.4-7.0 (m g/dL) Final Performing Location LAB[facility]ATORY [facility] - [address] [place] [address]
[2024-04-10 10:30] VITALS: RESP 16
[2024-04-10 11:44] LABS: Hematocrit (blood only) 42.4 % (42.0-52.0); Hemoglobin 14.3 g/dl (14.0-18.0); Mean Corpuscular Hemoglobin 30.1 pg (25.0-34.0); Mean Corpuscular Hgb Conc 33.7 g/dL (32.0-36.0); Mean Corpuscular Volume 89.3 fL (80.0-100.0); Mean Platelet Volume 10.2 fL (9.4-12.4); Platelet Count 229 K/uL (130-400); RDW Coefficient of Variation 13.7 % (11.5-14.5); RDW Standard Deviation 44.8 fL (36.4-46.3); Red Blood Count 4.75 M/uL (4.70-6.10); White Blood Count 9.34 K/ul (4.8-10.8)
[2024-04-10 12:01] LABS: BUN Creatinine Ratio 15.2 (10-20); Calcium 9.1 mg/dl (8.6-10.3); Creatinine Clr Calc Pharmacy 77.9 ml/min; Est GFR (African American) 103.2 ml/min; Est GFR (Non-African American) 89.1 ml/min; Phosphorus 2.2 mg/dl (2.5-4.9); Potassium 4.1 mmol/L (3.5-5.1)
--- NOTE | 2024-04-10 14:25 | Consultation ---
Date of Consultation April 10, 2024 Assessment & Plan (1) Acute DVT (deep venous thrombosis): Pt with acute LLE extensive DVT, which appears to be unprovoked. Pain improving, edema significant, but not tight. Recommend anticoagulation and daytime wear graduated compression stockings. Could consider hematology eval and recommend making sure all cancer screenings up to date. No indications for vascular surgical intervention. Discussed with pt, expresses understanding. Please call if needed. Affected thrombotic vein of extremity: unspecified vein of extremity DVT location: lower extremity Laterality: unspecified laterality Qualified Code(s): I82.409 - Acute embolism and thrombosis of unspecified deep veins of unspecified lower extremity History of Present Illness Reason for Consultation: DVT Attending Physician: Alma Sanon MD History of Present Illness 74 yo m with hx of HTN, cataracts, elevated PSA/radical prostatectomy, admitted with LLE DVT, seen in consultation today for DVT. Pt states no hx of DVT in past. Deneis any recent travel, injury or trauma, surgery. No family hx of DVT. Does smoke cigarettes. is very active, plays golf regularly. Dev eloped LLE pain and swelling about 2 weeks ago which worsened over time until he saw his PCP, who sent him for a venous US and then sent him to [facility] ED. [facility] pain is improved since admission. Pt denies QIU, fever, chest pain, SOB, cough, abd pain, N/V, rest pain, claudication, other complaitns. Venous US demonstrates extensive LLE DVT. Allergies Allergy/AdvReac Type Severity Reaction Status Date / Time venom-wasp protein Allergy Unknown Verified 04/09/24 17:28 Home Medications Medication Instructions Recorded Confirmed Type lisinopril 40 mg tablet 40 mg PO UD 04/09/24 04/09/24 History apixaban 5 mg tablet (Eliquis) 5 mg PO UD #74 tabs 04/10/24 Rx Patient History Medical History No pertinent family history HTN (hypertension) Surgical History No pertinent past surgical history Social History Smoking Status: Current every day smoker Tobacco Type: Cigarettes Cigarettes Per Day: 6; Do You Dip or Chew Tobacco: No; Hx Alcohol Use: Yes Alcohol type: beer Hx Substance Use: Yes Last Used Substance: Days (ago) Preferred Language: Romansh Communication Ability: Effective Porter Sample Case Required: No Beliefs That Will Affect Care: None Current Living Situation: Significant Other Other Information That Helps Us Care for You: No Feels Safe at Home: Yes Safety Concerns: Feels Safe At This Time Assistive Devices: None Review of Systems Review of Systems: All systems reviewed & are unremarkable except as noted in HPI & below Physical Exam Constitutional: WD/WN, vitals as above healthy appearing, cooperative and comfortable; not in distress Neck: trachea midline Respiratory: normal respiratory effort, lungs clear to auscultation Auscultation: + diminished lung sounds Cardiovascular: Rate/Rhythm: regular rate and regular rhythm Vessels: normal peripheral pulses, femoral pulses present, posterior tibial pulses present, dorsalis pedis pulses present and radial pulses present Extremities: normal capillary refill and + edema (+3 pitting edema LLE, no warmth or tenderness.) Gastrointestinal (Abdomen): Inspection/Auscultation: abdomen normal to inspection and normal bowel sounds Percussion/Palpation: abdomen soft; abdomen nontender Musculoskeletal: no cyanosis or clubbing, extremities motor strength 5/5 Skin: no rashes, warm and dry Neurologic: moves all extremities and awake; no focal motor deficits and not confused Psychiatric: A+Ox3, euthymic affect Results & Data Vital Signs (Past 12 Hours) Vital Signs Temp Pulse Pulse Resp BP Pulse Ox O2 Del Method 04/10/24 10:29 36.6 C 73 16 154/84 H 98 Room Air 04/10/24 09:00 65 04/10/24 07:21 36.5 C 68 14 144/79 H 98 Room Air 04/10/24 02:37 36.7 C 68 16 135/76 97 Room Air
[2024-04-10 14:36] VITALS: TEMP 98.2; O2SAT 96
--- NOTE | 2024-04-10 14:45 | Discharge Summary ---
Date of Service April 10, 2024 Admission HPI Per Admitting Provider 74-year-old male with PMH of HTN, Prediabetes (A1c of 6.0 on 04/08/2024), prostate cancer status post radical prostatectomy about 20 years ago (02/20/24 PSA <0.02), cataract both eyes, current use of tobacco [ 6-7 cigarettes a day] was referred to the ED by his PCP office after noting acute DVT in his left lower extremity. His outpatient lower extremity venous ultrasound Doppler as below: Left external iliac vein has continuous flow, and echogenic. Left common femoral vein has continuous flow, is partly compressible and echogenic. Left femoral vein has continuous flow, is non-compressible and echogenic. Left popliteal vein has no flow, is non-compressible and echogenic. Left posterior tibial vein demonstrates evidence of thrombosis. Left peroneal vein demonstrates evidence of thrombosis. The contralateral common femoral vein is patent and free of internal echoes. Patient reports progressive left lower extremity swelling since last couple of weeks, associated with pain, patient thought it could be gout and took naproxen without much relief, even propped his lower extremity up with no reduction in swelling. Yesterday he went to PCP office where Doppler lower extremity was done, came back positive for DVT today and he was referred to the ED. Patient denies any long travel, he reports that he is pretty much mobile and active and does not have any sedentary lifestyle in the last couple of months. Patient reports his last colonoscopy could be more than 13 years ago but reports that his Cologuard done approximately 6 months ago came back negative. Could not l ocate Cologuard test in the [facility] EMR. Patient denies fever/sore throat/chest pain/cough/palpitation/headache/dizziness/nausea/vomiting/acute changes in his bowel or bladder or appetite habits/belly pain/shortness of breath. Patient reports smoking 6 to 7 cigarettes a day, drinks beer on weekends, uses marijuana daily. Medications reviewed with the patient at bedside. Plan of care discussed with the patient in detail, he voiced understanding. Full code Admission Exam Per Admitting Provider GENERAL: Alert and oriented x3. NAD, on RA. HEENT: No pallor, no icterus. Pupils equal, round and reactive to light. Oral mucosa moist. NECK: No JVD, no neck masses. HEART: S1 and S2 heard. Regular rate and rhythm. No murmur, no gallop. RESPIRATORY SYSTEM: Normal AP diameter. No accessory muscle use. No wheezing, no crackles. ABDOMEN: Soft, bowel sounds present, nontender, no distention. CENTRAL NERVOUS SYSTEM: No facial droop. Speech is clear. Obeys simple commands. Moves extremities. EXTREMITIES: No edema x rle, no erythema seen. LLE: 2+ edema, tender, no erythema. Principal Diagnosis Acute DVT LLE PE Discharge Exam GENERAL: Alert and oriented x3. NAD, on RA. HEENT: No pallor, no icterus. Pupils equal, round and reactive to light. Oral mucosa moist. NECK: No JVD, no neck masses. HEART: S1 and S2 heard. Regular rate and rhythm. No murmur, no gallop. RESPIRATORY SYSTEM: Normal AP diameter. No accessory muscle use. No wheezing, no crackles. ABDOMEN: Soft, bowel sounds present, nontender, no distention. CENTRAL NERVOUS SYSTEM: No facial droop. Speech is clear. Obeys simple comma nds. Moves extremities. EXTREMITIES: No edema x rle, no erythema seen. LLE: 2+ edema, tender - improving, no erythema. Discharge Data Allergies Allergy/AdvReac Type Severity Reaction Status Date / Time venom-wasp protein Allergy Unknown Verified 04/09/24 17:28 Consultations 04/09/24 16:35 ED Decision to Admit Stat 04/09/24 17:46 Consult Vascular Surgery Routine Ordered Studies 04/09/24 18:18 CT angio chest PE protocol Routine Hospital Course (1) Acute DVT (deep venous thrombosis): Plan 74 yo M was managed for the following: Acute DVT LLE: Rt LL PE: per CTA chest. no rt heart strain, trop wnl. pt w/ no chest pain. Patient was evaluated for LLE swelling, got lower extremity venous Doppler done as an outpatient. See above HPI. ED physician communicated with vascular sx, patient started on heparin drip. Continue heparin, to be transitioned to Eliquis from today evening. Cost of Eliquis discussed with the patient, $238 per month co-pay, patient agreeable. CM to provide first month free coupon for Eliquis to the patient prior to discharge. Vascular surgery evaluated, appreciate recommendation. Patient advised to follow-up with PCP office for age-appropriate cancer screening. Patient advised to follow-up with hematology upon discharge. Hypertension: Continue lisinopril. Full code Patient is being discharged with following instruction at the point of discharge: Follow-up with your primary care physician within a week time and likely you will need labs CBC/CMP/magnesium/phosphorus. As discussed at the bedside, you will get IV heparin drip until 6 PM today, you will be given first dose of Eliquis after heparin drip is stopped today at the hospital. You will need to collect your Eliquis from the pharmacy and start further doses from tomorrow morning. You will need to take 10 mg of Eliquis twice a day for 14 doses (first dose 04/10 evening) and then 5 mg twice a day thereafter. Vascular surgery evaluated you while in the hospital, recommends anticoagulation and wear graduated compression stockings during daytime. As discussed at the bedside, follow-up with your primary care office to make sure you are up-to-date on age-appropriate cancer screening. As discussed at the bedside, follow-up with hematology physician in 2 to 4 weeks time upon discharge. Take your medications as prescribed. Please make sure that you are able to get your medications today by calling your pharmacy before you leave the hospital so that your treatment continuity is not broken. Home Health Attestation I certify that this patient is under my care and that I, or a physicians daycare assistant working with me, had a face to-face encounter that meets the home health [id number] encounter requirements with this patient. The encounter with the patient was in whole, or in part, for the following medical condition, which is the primary reason for home health care (list medical condition): I certify that, based on my findings, the following services are medically necessary home health services: My clinical findings support the need for the above services because: Further, I certify that my clinical findings support that this patient is homebound (i.e. absences from home require considerable and taxing effort and are for medical reasons or episcop[employer] services or infrequently or of short duration when for other reasons) because: Certification for Home Health Services: Based on the above findings, I certify that this patient is confined to the home and needs intermittent prison care, physical therapy and/or speech therapy or continues to need occupational therapy. The patient is under my care, and I have initiated the establishment of the plan of care. This patient will be followed by a physician who will periodically review the plan of care. Total Time Total Time Spent Total Time Spent (In Minutes): 45 Discharge Plan Discharge Items Patient Disposition: Home - Self-Care Reason For Visit: LLE DVT Discharge Diagnosis: Acute DVT LLE PE Activity: Resume your previous activity Non-emergency contact: Primary Care Provider Call non-emergency contact if: you have any medication questions, your symptoms worsen and your temperature is above 101 Follow-up/Referrals: Marielos Sweeney PA-C [Primary Care Provider] - Diet: Heart Healthy Addtl Attending Provider Instructions: Follow-up with your primary care physician within a week time and likely you will need labs CBC/CMP/magnesium/phosphorus. As discussed at the bedside, you will get IV heparin drip until 6 PM today, you will be given first dose of Eliquis after heparin drip is stopped today at the hospital. You will need to collect your Eliquis from the pharmacy and start further doses from tomorrow morning. You will need to take 10 mg of Eliquis twice a day for 14 doses (first dose 04/10 evening) and then 5 mg twice a day thereafter. Vascular surgery evaluated you while in the hospital, recommends anticoagulation and wear graduated compression stockings during daytime. As discussed at the bedside, follow-up with your primary care office to make sure you are up-to-date on age-appropriate cancer screening. As discussed at the bedside, follow-up with hematology physician in 2 to 4 weeks time upon discharge. Take your medications as prescribed. Please make sure that you are able to get your medications today by calling your pharmacy before you leave the hospital so that your treatment continuity is not broken. Pending Studies at Discharge: No Stand-Alone Forms: My [employer], Smoking Cessation Medications and DC Order Prescriptions: New Eliquis 5 mg tablet 5 mg PO UD Qty: 74 0RF Rx Instructions: 2 tab twice a day x 7 days, then 1 tab twice a day thereafter. Continued lisinopril 40 mg Tablet 40 mg PO UD Rx Instructions: per patient, he thinks it's the 40 mg dose. Discharge Orders: Discharge Order (Routine); Ordered 04/10/24 Ordered By: Alma Sanon Admission Data Admit Date/Time: 04/09/24 17:50 Attending Provider: Alma Sanon Admit Provider: Alma Sanon Primary Care Provider: Marielos Sweeney Other Providers: Alma Sanon; Boubacar Urena
[2024-04-10 16:21] VITALS: BP 156/121; PULSE 74
[2024-04-10] MEDS: APIXABAN 5 MG TABLET PO SCH (18:06)
[2024-04-10] MEDS: POT PHOSPHATE MONOBASIC W/ SOD TAB PO SCH (18:07)
--- NOTE | 2024-04-11 06:13 | Electrocardiogram Report ---
Test Reason : Blood Pressure : */* mmHG Vent. Rate : 66 BPM Atrial Rate : 66 BPM P-R Int : 150 ms QRS Dur : 96 ms QT Int : 398 ms P-R-T Axes : 82 78 66 degrees QTcB Int : 417 ms Normal sinus rhythm Normal ECG No previous ECGs available Confirmed by Mark Rod ([id number]) on 04/11/2024 6:13:26 AM Referred By: Marielos Sweeney Confirmed By: Mark Rod
== END 2024-04-10 18:17 | disposition home or self-care (01) | DRG 299 ==
LOC: ED 15:21 → INTOOBSV 17:50 → 2N 17:50